=== PATIENT | male | born 1965 | race Two or more races ===

== ENCOUNTER 2019-11-21 19:31 | Emergency (ER) | payer MEDICAID ==
[~2019-11-21] VITALS: Ht 177.8 cm; Wt 118.4 kg
[2019-11-21 20:56] LABS: Basophils # (auto) 0.1 uL; Basophils % (auto) 0.9 % (0.0-2.0); Eosinophils # (auto) 0.2 uL; Eosinophils % (auto) 2.6 % (0.0-7.0); Hematocrit 40.4 % (41.0-53.0); Hemoglobin 13.4 g/dL (13.5-17.5); Lymphocytes # (auto) 1.7 uL; Lymphocytes % (auto) 28.5 % (10.0-50.0); Mean Corpuscular Hemoglobin 31.9 pg (28.0-32.0); Mean Corpuscular Hgb Conc. 33.2 g/dL (32.0-36.0); Mean Corpuscular Volume 96.1 fL (80.0-100.0); Monocytes # (auto) 0.8 uL; Monocytes % (auto) 13.2 % (0.0-12.0); Neutrophils # (auto) 3.3 uL; Neutrophils % (auto) 54.8 % (37.0-80.0); Nucleated Red Blood Cells % 0.1 %; Platelet Count (auto) 280 10^3/uL (140-450); Red Cell Distribution Width 13.2 % (11.8-14.3); White Blood Cell 6.1 10^3/uL (4.4-10.8)
[2019-11-21 21:10] LABS: INR 1.16 (0.9-1.15); Partial Thromboplastin Time 36.2 sec (23.64-32.05)
[2019-11-21 21:12] LABS: Potassium 3.8 mmol/L (3.5-5.1)
[2019-11-21 21:13] LABS: Albumin 3.8 g/dL (3.4-5.0); BUN/Creatinine Ratio 12.5; Calcium 8.7 mg/dL (8.5-10.1)
[2019-11-21 21:18] LABS: Bilirubin, Total 0.6 mg/dL (0.2-1.0)
[2019-11-22] MEDS ORDERED: MORPHINE SULFATE 4 MG/ML SYR/VIAL IV ONE (00:15)
[2019-11-22] MEDS ORDERED: ONDANSETRON HCL 4 MG/2 ML VIAL IV ONE (00:15)
[2019-11-22] MEDS ORDERED: cefTRIAXone 1GM/50ML D5W 50 ML IV ONE (00:15)
[2019-11-22 02:30] VITALS: BP 109/65
[2019-11-22] MEDS ORDERED: ENOXAPARIN SOD 120 MG/0.8 ML SYRINGE SC ONE (02:30)
== END 2019-11-22 02:49 | disposition home or self-care (01) ==
LOC: ER 19:35
DX: L25.9 Unspecified contact dermatitis, unspecified cause (principal); I82.412 Acute embolism and thrombosis of left femoral vein; M79.662 Pain in left lower leg; I11.0 Hypertensive heart disease with heart failure; I50.9 Heart failure, unspecified; Z88.0 Allergy status to penicillin
CPT/HCPCS: 36415; 80053; 83880; 84484; 85025; 85610; 85730; 93005; 93970; 96365; 96372; 96375; 99285; J0696; J1650; J2270; J2405

== ENCOUNTER 2020-05-23 12:59 | Inpatient (IN) | payer MEDICAID ==
[~2020-05-23] VITALS: Ht 180.3 cm; Wt 121.4 kg
[2020-05-23 14:14] LABS: Hematocrit 39.4 % (41.0-53.0); Hemoglobin 12.6 g/dL (13.5-17.5); Mean Corpuscular Hemoglobin 31.3 pg (28.0-32.0); Mean Corpuscular Hgb Conc. 31.9 g/dL (32.0-36.0); Mean Corpuscular Volume 98.2 fL (80.0-100.0); Platelet Count (auto) 305 10^3/uL (140-450); Red Blood Cells 4.01 10^6/uL (4.5-5.90); Red Cell Distribution Width 17.7 % (11.8-14.3); White Blood Cell 5.7 10^3/uL (4.4-10.8)
[2020-05-23 14:22] LABS: INR 1.03 (0.9-1.15)
[2020-05-23 14:29] LABS: Band Neutrophils % (manual) 0; Basophils % (manual) 0 (0.0-2.0); Blast Cells 0; Metamyelocytes % 0; Myelocytes % 0; Promyelocytes % 0; Reactive Lymphocytes 0
[2020-05-23 14:39] LABS: Lactic Acid w/Reflex 2.2 mmol/L (0.4-2.0)
[2020-05-23 14:42] LABS: Calcium 8.6 mg/dL (8.5-10.1); Potassium 3.3 mmol/L (3.5-5.1)
[2020-05-23 14:43] LABS: BUN/Creatinine Ratio 21.1
[2020-05-23 14:50] LABS: Bilirubin, Total 0.5 mg/dL (0.2-1.0); Total Protein 8.2 g/dL (6.4-8.2)
[2020-05-23 15:35] LABS: Eosinophils % (manual) 2 (0-7); Lymphocytes % (manual) 22 (10.0-50.0); Monocytes % (manual) 21 (0-12)
[2020-05-23] MEDS ORDERED: cefTRIAXone 1GM/50ML D5W 50 ML IV ONE (16:00)
[2020-05-23] MEDS ORDERED: cefTRIAXone SOD 1,000 MG VL ONE (16:03)
[2020-05-23] MEDS ORDERED: MORPHINE SULF INJ 2 MG/ML SYRINGE 1ML IV ONE (16:15)
[2020-05-23] MEDS ORDERED: ONDANSETRON HCL 4 MG/2 ML VIAL IV ONE (16:15)
[2020-05-23] MEDS ORDERED: ONDANSETRON HCL 4 MG/2 ML VIAL IV PRN (18:30)
[2020-05-23] MEDS ORDERED: ACETAMINOPHEN 500 MG TAB PO PRN (18:30)
[2020-05-23] MEDS: FUROSEMIDE 40 MG/4 ML VIAL IV SCH (19:00)
[2020-05-23] MEDS: HYDROcodone-ACET 10/325MG TAB PO PRN ×2 (19:04→23:07)
[2020-05-23 20:15] VITALS: BP 127/77
[2020-05-23] MEDS: POTASSIUM CHL 20 Meq TABLET PO SCH (21:37)
[2020-05-23] MEDS: CLINDAMYCIN 600MG IV 50 ML IV SCH (21:37)
[2020-05-23 22:00] VITALS: BP 127/77
[2020-05-23] MEDS ORDERED: DOXYCYCLINE 100MG/250ML 250 ML IV SCH (22:00)
[2020-05-24] MEDS: HYDROcodone-ACET 10/325MG TAB PO PRN ×4 (04:38→22:05)
[2020-05-24 05:00] VITALS: BP 109/67
[2020-05-24 06:04] LABS: Potassium 3.3 mmol/L (3.5-5.1)
[2020-05-24 06:12] LABS: BUN/Creatinine Ratio 19.8
[2020-05-24] MEDS: CLINDAMYCIN 600MG IV 50 ML IV SCH ×3 (07:05→22:05)
[2020-05-24] MEDS: FUROSEMIDE 40 MG/4 ML VIAL IV SCH ×2 (07:06→18:56)
[2020-05-24 08:00] VITALS: BP 114/74
[2020-05-24] MEDS: POTASSIUM CHL 20 Meq TABLET PO SCH (09:07)
[2020-05-24] MEDS: ENOXAPARIN SOD 40 MG/0.4 ML SYRINGE SC SCH (09:08)
[2020-05-24] MEDS: levoFLOXacin 500MG 100 ML IV SCH (09:08)
[2020-05-24] MEDS ORDERED: POTASSIUM CHLORIDE 20 MEQ, LIDOCAINE 1% (LOCAL ANESTH.) 2 ML in SODIUM CHL 0.9% 100 ML IV ONE (09:45)
[2020-05-24 12:00] VITALS: BP 108/72
[2020-05-24 16:58] VITALS: BP 117/76
[2020-05-24] MEDS: metOLazone 5 MG TAB PO SCH (18:56)
[2020-05-24 22:00] VITALS: BP 118/71
[2020-05-24] MEDS: POTASSIUM CHL 10 Meq TABLET PO SCH (22:04)
[2020-05-25] MEDS: HYDROcodone-ACET 10/325MG TAB PO PRN ×4 (04:31→21:00)
[2020-05-25 05:00] VITALS: BP 121/70
[2020-05-25] MEDS: CLINDAMYCIN 600MG IV 50 ML IV SCH ×3 (06:00→20:59)
[2020-05-25] MEDS: metOLazone 5 MG TAB PO SCH ×2 (06:01→16:58)
[2020-05-25] MEDS: FUROSEMIDE 40 MG/4 ML VIAL IV SCH ×2 (06:01→16:58)
[2020-05-25 06:18] LABS: BUN/Creatinine Ratio 19.3; Calcium 8.4 mg/dL (8.5-10.1)
[2020-05-25 08:24] VITALS: BP 112/74
[2020-05-25] MEDS ORDERED: POTASSIUM CHL 20 Meq TABLET PO ONE (09:15)
[2020-05-25] MEDS: levoFLOXacin 500MG 100 ML IV SCH (09:22)
[2020-05-25] MEDS: POTASSIUM CHL 10 Meq TABLET PO SCH ×2 (09:23→21:00)
[2020-05-25] MEDS: ENOXAPARIN SOD 40 MG/0.4 ML SYRINGE SC SCH (09:23)
[2020-05-25] MEDS ORDERED: POTASSIUM CHLORIDE 40 MEQ, LIDOCAINE 1% (LOCAL ANESTH.) 4 ML in SODIUM CHL 0.9% 100 ML IV ONE (09:30)
[2020-05-25] MEDS: VALSARTAN 80 MG TAB PO SCH (18:41)
[2020-05-25] MEDS: ASPirin-EC 81 mg tab PO SCH (18:41)
[2020-05-25] MEDS: MUPIROCIN 2% OINT 15gm or 22gm EACHNOSTRI SCH (20:59)
[2020-05-25 22:00] VITALS: BP 98/65
[2020-05-25] MEDS: CARVEDILOL 3.125 MG TAB PO SCH (22:00)
[2020-05-25] MEDS ORDERED: ATORVASTATIN 20 MG TAB PO SCH (22:00)
[2020-05-26] MEDS: HYDROcodone-ACET 10/325MG TAB PO PRN ×3 (03:54→17:23)
[2020-05-26 05:00] VITALS: BP 99/51
[2020-05-26] MEDS: FUROSEMIDE 40 MG/4 ML VIAL IV SCH ×2 (05:18→18:00)
[2020-05-26] MEDS: metOLazone 5 MG TAB PO SCH ×2 (05:18→18:00)
[2020-05-26] MEDS: CLINDAMYCIN 600MG IV 50 ML IV SCH ×2 (05:19→16:52)
[2020-05-26 06:15] LABS: Calcium 7.8 mg/dL (8.5-10.1); Magnesium 1.4 mg/dL (1.6-2.6); Potassium 3.4 mmol/L (3.5-5.1)
[2020-05-26 09:00] VITALS: BP 116/67
[2020-05-26] MEDS: levoFLOXacin 500MG 100 ML IV SCH (09:59)
[2020-05-26] MEDS: POTASSIUM CHL 10 Meq TABLET PO SCH (10:00)
[2020-05-26] MEDS: ASPirin-EC 81 mg tab PO SCH (10:00)
[2020-05-26] MEDS: CARVEDILOL 3.125 MG TAB PO SCH (10:00)
[2020-05-26] MEDS: ENOXAPARIN SOD 40 MG/0.4 ML SYRINGE SC SCH (10:01)
[2020-05-26] MEDS: VALSARTAN 80 MG TAB PO SCH (10:01)
[2020-05-26] MEDS: MUPIROCIN 2% OINT 15gm or 22gm EACHNOSTRI SCH (10:04)
[2020-05-26] MEDS ORDERED: MUPI2OIN2 EACHNOSTRI ×2 (12:37)
[2020-05-26] MEDS ORDERED: POTA10TA75 PO ×2 (12:37)
[2020-05-26] MEDS ORDERED: LEVO-28 PO ×2 (12:37)
[2020-05-26] MEDS ORDERED: ATOR20TA50 PO ×2 (12:37)
[2020-05-26] MEDS ORDERED: CAR3125T PO ×2 (12:37)
[2020-05-26] MEDS ORDERED: FURO1TAB31 PO ×2 (12:37)
[2020-05-26] MEDS ORDERED: ASPI-543 PO ×2 (12:37)
[2020-05-26] MEDS ORDERED: POTASSIUM EFFERVESENT TAB 25 MEQ PO ONE (12:45)
[2020-05-26 13:00] VITALS: BP 108/61
[2020-05-26] MEDS ORDERED: MAGNESIUM SULFATE 1GM/100ML 100 ML IV SCH (13:00)
[2020-05-26 17:00] VITALS: BP 126/70
[2020-05-26 18:38] VITALS: BP 126/70
== END 2020-05-26 22:10 | disposition home health service (06) | DRG 813 ==
LOC: EDBD 12:59 → ER 12:59 → OVERFLOW 13:00 → EAST 20:15 → WEST WING 05-25 08:21
PROVIDERS: ADMIT Hospitalist; ATTEND Hospitalist
DX: T81.30XA Disruption of wound, unspecified, initial encounter (principal); I50.33 Acute on chronic diastolic (congestive) heart failure; I11.0 Hypertensive heart disease with heart failure; L03.115 Cellulitis of right lower limb; E66.01 Morbid (severe) obesity due to excess calories; L03.116 Cellulitis of left lower limb; S81.801A Unspecified open wound, right lower leg, initial encounter; Z20.828 Contact with and (suspected) exposure to other viral communicable diseases; E78.5 Hyperlipidemia, unspecified; Z86.718 Personal history of other venous thrombosis and embolism; Z79.01 Long term (current) use of anticoagulants; Z68.36 Body mass index [BMI] 36.0-36.9, adult; Z88.0 Allergy status to penicillin; Z79.899 Other long term (current) drug therapy
CPT/HCPCS: 36415; 71045; 80048; 80053; 80061; 83036; 83605; 83735; 83880; 85007; 85027; 85610; 85730; 87040; 87081; 87426; 93005; 93306; 93926; 93970; 94760; G0378; J0696; J1956; J2001; J2405; J3490

== ENCOUNTER 2020-06-08 19:24 | Inpatient (IN) | payer MEDICAID ==
[~2020-06-08] VITALS: Ht 177.8 cm; Wt 123.9 kg
[~2020-06-08 19:24] MED LIST: ASPI-543 PO; ATOR20TA50 PO; CAR3125T PO; FURO1TAB31 PO; LEVO-28 PO; MUPI2OIN2 EACHNOSTRI; POTA10TA75 PO
[2020-06-08] MEDS ORDERED: CLINDAMYCIN 900MG IV 50 ML IV ONE (20:15)
[2020-06-08] MEDS ORDERED: MORPHINE SULFATE 4 MG/ML SYR/VIAL IV ONE (20:15)
[2020-06-08] MEDS ORDERED: cefTRIAXone 1GM/50ML D5W 50 ML IV ONE (20:15)
[2020-06-08] MEDS ORDERED: ONDANSETRON HCL 4 MG/2 ML VIAL IV ONE (20:15)
[2020-06-08 21:08] LABS: Basophils # (auto) 0.1 10 ^3/uL (0-0.2); Eosinophils # (auto) 0.1 10 ^3/uL (0-0.8); Nucleated Red Blood Cells % 0.1 %
[2020-06-08 21:09] LABS: Basophils % (auto) 1.1 % (0.0-2.0); Eosinophils % (auto) 1.8 % (0.0-7.0); Hematocrit 34.9 % (41.0-53.0); Hemoglobin 11.7 g/dL (13.5-17.5); Lymphocytes # (auto) 1.3 10 ^3/uL (0.4-5.4); Lymphocytes % (auto) 18.4 % (10.0-50.0); Mean Corpuscular Hemoglobin 32.9 pg (28.0-32.0); Mean Corpuscular Hgb Conc. 33.6 g/dL (32.0-36.0); Mean Corpuscular Volume 98.2 fL (80.0-100.0); Monocytes # (auto) 0.7 10 ^3/uL (0-1.3); Monocytes % (auto) 10.9 % (0.0-12.0); Neutrophils # (auto) 4.6 10 ^3/uL (1.6-8.6); Neutrophils % (auto) 67.8 % (37.0-80.0); Platelet Count (auto) 478 10^3/uL (140-450); Red Blood Cells 3.55 10^6/uL (4.5-5.90); Red Cell Distribution Width 17.3 % (11.8-14.3); White Blood Cell 6.8 10^3/uL (4.4-10.8)
[2020-06-08 21:28] LABS: BUN/Creatinine Ratio 10.5; Calcium 8.6 mg/dL (8.5-10.1); Potassium 3.4 mmol/L (3.5-5.1)
[2020-06-08 21:31] LABS: Bilirubin, Total 0.5 mg/dL (0.2-1.0); Total Protein 7.8 g/dL (6.4-8.2)
[2020-06-09] VITALS (7 sets, daily range): BP systolic 95–126; BP diastolic 52–71
[2020-06-09] MEDS ORDERED: ONDANSETRON HCL 4 MG/2 ML VIAL IV ONE ×2 (01:15→02:30)
[2020-06-09] MEDS ORDERED: MORPHINE SULFATE 4 MG/ML SYR/VIAL IV ONE (01:15)
[2020-06-09 02:24] LABS: Urine Bacteria FEW /hpf (None Seen); Urine Blood TRACE /uL (Negative); Urine Hyaline Cast FEW /lpf (0 - 2); Urine Mucus FEW (None Seen); Urine Specific Gravity 1.025 (1.001-1.035); Urine WBC 2 /hpf (0 - 3)
[2020-06-09] MEDS ORDERED: SODIUM CHLORIDE 0.9% 1,000 ML IV ONE (02:30)
[2020-06-09] MEDS ORDERED: TEMAZEPAM 15 MG CAP PO PRN (02:45)
[2020-06-09] MEDS ORDERED: ACETAMINOPHEN 325 MG TAB PO PRN (02:45)
[2020-06-09] MEDS ORDERED: ONDANSETRON HCL 4 MG/2 ML VIAL IV PRN (02:45)
[2020-06-09] MEDS: HYDROcodone-ACET 5/325MG TAB PO PRN ×3 (04:19→21:46)
[2020-06-09] MEDS ORDERED: WARF5TAB71 PO ×2 (05:38)
[2020-06-09] MEDS ORDERED: HYDR-531 PO ×2 (05:38)
[2020-06-09] MEDS: CLINDAMYCIN 600MG IV 50 ML IV SCH ×3 (05:49→21:46)
[2020-06-09] MEDS: FUROSEMIDE 40 MG TAB PO SCH ×2 (05:50→18:20)
[2020-06-09] MEDS: levoFLOXacin 500MG 100 ML IV SCH (10:27)
[2020-06-09] MEDS: ASPirin 81 mg TAB PO SCH (10:27)
[2020-06-09] MEDS: FAMOTIDINE 20 MG TAB PO SCH ×2 (10:27→21:46)
[2020-06-09] MEDS: ENOXAPARIN SOD 40 MG/0.4 ML SYRINGE SC SCH (10:28)
[2020-06-09] MEDS: CARVEDILOL 3.125 MG TAB PO SCH ×2 (10:28→22:00)
[2020-06-09] MEDS: ATORVASTATIN 20 MG TAB PO SCH (21:46)
[2020-06-10] MEDS: HYDROcodone-ACET 5/325MG TAB PO PRN ×4 (02:14→21:36)
[2020-06-10 05:00] VITALS: BP 90/60
[2020-06-10] MEDS: CLINDAMYCIN 600MG IV 50 ML IV SCH ×2 (05:55→15:30)
[2020-06-10] MEDS: FUROSEMIDE 40 MG TAB PO SCH (05:56)
[2020-06-10 06:11] LABS: Basophils # (auto) 0 10 ^3/uL (0-0.2); Basophils % (auto) 0.3 % (0.0-2.0); Eosinophils # (auto) 0.2 10 ^3/uL (0-0.8); Eosinophils % (auto) 3.6 % (0.0-7.0); Hematocrit 34.1 % (41.0-53.0); Hemoglobin 10.9 g/dL (13.5-17.5); Lymphocytes # (auto) 1.3 10 ^3/uL (0.4-5.4); Lymphocytes % (auto) 20.1 % (10.0-50.0); Mean Corpuscular Hemoglobin 31.6 pg (28.0-32.0); Mean Corpuscular Hgb Conc. 31.9 g/dL (32.0-36.0); Monocytes # (auto) 0.7 10 ^3/uL (0-1.3); Monocytes % (auto) 10.5 % (0.0-12.0); Neutrophils # (auto) 4.1 10 ^3/uL (1.6-8.6); Neutrophils % (auto) 65.5 % (37.0-80.0); Platelet Count (auto) 415 10^3/uL (140-450); Red Blood Cells 3.44 10^6/uL (4.5-5.90); Red Cell Distribution Width 17.3 % (11.8-14.3); White Blood Cell 6.3 10^3/uL (4.4-10.8)
[2020-06-10 08:02] LABS: Potassium 3.2 mmol/L (3.5-5.1)
[2020-06-10 08:04] LABS: BUN/Creatinine Ratio 13.1
[2020-06-10 09:00] VITALS: BP 114/65
[2020-06-10] MEDS ORDERED: POTASSIUM CHL 20 Meq TABLET PO ONE (09:30)
[2020-06-10] MEDS: ENOXAPARIN SOD 40 MG/0.4 ML SYRINGE SC SCH (10:31)
[2020-06-10] MEDS: levoFLOXacin 500MG 100 ML IV SCH (10:33)
[2020-06-10] MEDS: ASPirin 81 mg TAB PO SCH (10:34)
[2020-06-10] MEDS: CARVEDILOL 3.125 MG TAB PO SCH ×2 (10:35→23:08)
[2020-06-10] MEDS: FAMOTIDINE 20 MG TAB PO SCH ×2 (10:36→21:36)
[2020-06-10 12:47] VITALS: BP 123/76
[2020-06-10] MEDS: MORPHINE SULF INJ 2 MG/ML SYRINGE 1ML IV PRN (14:41)
[2020-06-10 15:45] LABS: INR 1.14 (0.9-1.15)
[2020-06-10 16:21] VITALS: BP 122/63
[2020-06-10] MEDS ORDERED: ERTAPENEM SOD INJ 1 GM in SODIUM CHL 0.9% 50 ML IV ONE (16:30)
[2020-06-10] MEDS: CLINDAMYCIN HCL 150 MG CAP PO SCH (21:35)
[2020-06-10] MEDS: MUPIROCIN 2% OINT 15gm or 22gm EACHNOSTRI SCH (21:35)
[2020-06-10] MEDS: ATORVASTATIN 20 MG TAB PO SCH (21:35)
[2020-06-10 22:00] VITALS: BP 135/77
[2020-06-11 05:00] VITALS: BP 122/76
[2020-06-11] MEDS: MORPHINE SULF INJ 2 MG/ML SYRINGE 1ML IV PRN ×3 (05:09→21:44)
[2020-06-11] MEDS: CLINDAMYCIN HCL 150 MG CAP PO SCH ×2 (06:00→13:38)
[2020-06-11 06:40] LABS: Basophils # (auto) 0 10 ^3/uL (0-0.2); Basophils % (auto) 0.3 % (0.0-2.0); Eosinophils # (auto) 0.2 10 ^3/uL (0-0.8); Eosinophils % (auto) 4.2 % (0.0-7.0); Hematocrit 31.4 % (41.0-53.0); Hemoglobin 10.6 g/dL (13.5-17.5); Lymphocytes # (auto) 1.3 10 ^3/uL (0.4-5.4); Lymphocytes % (auto) 26.5 % (10.0-50.0); Mean Corpuscular Hemoglobin 33.3 pg (28.0-32.0); Mean Corpuscular Hgb Conc. 33.9 g/dL (32.0-36.0); Mean Corpuscular Volume 98.2 fL (80.0-100.0); Monocytes # (auto) 0.7 10 ^3/uL (0-1.3); Monocytes % (auto) 13.1 % (0.0-12.0); Neutrophils # (auto) 2.8 10 ^3/uL (1.6-8.6); Neutrophils % (auto) 55.9 % (37.0-80.0); Nucleated Red Blood Cells % 0.1 %; Platelet Count (auto) 400 10^3/uL (140-450); Red Cell Distribution Width 17.4 % (11.8-14.3)
[2020-06-11 06:46] LABS: Calcium 7.9 mg/dL (8.5-10.1); Potassium 3.9 mmol/L (3.5-5.1)
[2020-06-11 06:48] LABS: INR 1.05 (0.9-1.15); Partial Thromboplastin Time 31.6 sec (23.0-31.2)
[2020-06-11 06:50] LABS: BUN/Creatinine Ratio 19.7
[2020-06-11 09:00] VITALS: BP 134/83
[2020-06-11] MEDS ORDERED: LIDOCAINE 2%HCL (LOCAL ANESTH.) INJ 20ML MDV ONE ×3 (09:34→10:47)
[2020-06-11] MEDS ORDERED: IOHEXOL 350 MG/ML 100ML IJ ONE (09:35)
[2020-06-11] MEDS ORDERED: SODIUM CHL 0.9% 0 ML ONE (09:47)
[2020-06-11] MEDS ORDERED: fentaNYL CITRATE 100 MCG/2 ML VL ONE (09:47)
[2020-06-11] MEDS ORDERED: MIDAZOLAM HCL 1MG/1ML-2 ML VIAL ONE (09:47)
[2020-06-11] MEDS ORDERED: ANGIOMAX 250 MG VIAL IV ONE (09:47)
[2020-06-11] MEDS: SILVER SULFADIAZINE 1 % TOPICAL CREAM 50GM TOP SCH (10:00)
[2020-06-11] MEDS: ENOXAPARIN SOD 40 MG/0.4 ML SYRINGE SC SCH (10:00)
[2020-06-11] MEDS ORDERED: diphenhdrAMINE HCL 50 MG/1 ML VL ONE (10:02)
[2020-06-11] MEDS ORDERED: HYDROmorphone HCL 2 MG/ML VL ONE (10:42)
[2020-06-11 12:59] VITALS: BP 132/68
[2020-06-11] MEDS: FAMOTIDINE 20 MG TAB PO SCH ×2 (13:37→21:44)
[2020-06-11] MEDS: ASPirin 81 mg TAB PO SCH (13:37)
[2020-06-11] MEDS: ERTAPENEM SOD INJ 1 GM in SODIUM CHL 0.9% 50 ML IV SCH (13:37)
[2020-06-11] MEDS: MUPIROCIN 2% OINT 15gm or 22gm EACHNOSTRI SCH ×2 (13:38→21:43)
[2020-06-11] MEDS: CARVEDILOL 3.125 MG TAB PO SCH ×2 (13:38→21:44)
[2020-06-11] MEDS ORDERED: LIDOCAINE 1% (LOCAL ANESTH.) PF 5ml SDV ID ONE (17:00)
[2020-06-11] MEDS: HYDROcodone-ACET 5/325MG TAB PO PRN (18:06)
[2020-06-11 20:00] VITALS: BP 118/73
[2020-06-11] MEDS: SODIUM CHLOR 0.9% PF (SALINE LOCK) 10ML VIAL/SYR IV SCH (21:43)
[2020-06-11] MEDS: LINEZOLID 600MG TABLET PO SCH (21:44)
[2020-06-11] MEDS: ATORVASTATIN 20 MG TAB PO SCH (21:44)
[2020-06-11 21:49] VITALS: BP 118/73
[2020-06-12] VITALS (7 sets, daily range): BP systolic 118–140; BP diastolic 69–77
[2020-06-12] MEDS: HYDROcodone-ACET 5/325MG TAB PO PRN ×3 (04:07→20:57)
[2020-06-12] MEDS: MORPHINE SULF INJ 2 MG/ML SYRINGE 1ML IV PRN ×2 (06:13→17:37)
[2020-06-12 06:49] LABS: Basophils # (auto) 0 10 ^3/uL (0-0.2); Eosinophils # (auto) 0.2 10 ^3/uL (0-0.8); Hemoglobin 10.7 g/dL (13.5-17.5); Neutrophils # (auto) 3.4 10 ^3/uL (1.6-8.6); Neutrophils % (auto) 58.2 % (37.0-80.0); White Blood Cell 5.8 10^3/uL (4.4-10.8)
[2020-06-12 06:51] LABS: Basophils % (auto) 0.7 % (0.0-2.0); Eosinophils % (auto) 3.3 % (0.0-7.0); Hematocrit 32.9 % (41.0-53.0); Lymphocytes # (auto) 1.5 10 ^3/uL (0.4-5.4); Lymphocytes % (auto) 26.6 % (10.0-50.0); Mean Corpuscular Hemoglobin 32.6 pg (28.0-32.0); Mean Corpuscular Hgb Conc. 32.5 g/dL (32.0-36.0); Mean Corpuscular Volume 100.3 fL (80.0-100.0); Monocytes # (auto) 0.6 10 ^3/uL (0-1.3); Monocytes % (auto) 11.2 % (0.0-12.0); Nucleated Red Blood Cells % 0.1 %; Platelet Count (auto) 384 10^3/uL (140-450); Red Blood Cells 3.29 10^6/uL (4.5-5.90); Red Cell Distribution Width 17.8 % (11.8-14.3)
[2020-06-12 07:14] LABS: BUN/Creatinine Ratio 20.5; Calcium 8.3 mg/dL (8.5-10.1)
[2020-06-12] MEDS: ERTAPENEM SOD INJ 1 GM in SODIUM CHL 0.9% 50 ML IV SCH (11:21)
[2020-06-12] MEDS: ASPirin 81 mg TAB PO SCH (11:22)
[2020-06-12] MEDS: LINEZOLID 600MG TABLET PO SCH ×2 (11:23→22:03)
[2020-06-12] MEDS: FAMOTIDINE 20 MG TAB PO SCH ×2 (11:23→22:03)
[2020-06-12] MEDS: CARVEDILOL 3.125 MG TAB PO SCH ×2 (11:23→22:03)
[2020-06-12] MEDS: MUPIROCIN 2% OINT 15gm or 22gm EACHNOSTRI SCH ×2 (11:24→22:02)
[2020-06-12] MEDS: ENOXAPARIN SOD 40 MG/0.4 ML SYRINGE SC SCH (11:28)
[2020-06-12] MEDS: SODIUM CHLOR 0.9% PF (SALINE LOCK) 10ML VIAL/SYR IV SCH ×2 (11:31→22:02)
[2020-06-12] MEDS: SILVER SULFADIAZINE 1 % TOPICAL CREAM 50GM TOP SCH (17:37)
[2020-06-12] MEDS: ATORVASTATIN 20 MG TAB PO SCH (22:03)
[2020-06-13] MEDS: MORPHINE SULF INJ 2 MG/ML SYRINGE 1ML IV PRN ×3 (01:55→19:54)
[2020-06-13] MEDS: HYDROcodone-ACET 5/325MG TAB PO PRN ×3 (04:41→22:16)
[2020-06-13 05:22] VITALS: BP 118/78
[2020-06-13 06:54] LABS: Basophils # (auto) 0 10 ^3/uL (0-0.2); Basophils % (auto) 0.4 % (0.0-2.0); Eosinophils # (auto) 0.2 10 ^3/uL (0-0.8); Eosinophils % (auto) 4.6 % (0.0-7.0); Hemoglobin 10.6 g/dL (13.5-17.5); Lymphocytes # (auto) 1.6 10 ^3/uL (0.4-5.4); Lymphocytes % (auto) 31.2 % (10.0-50.0); Mean Corpuscular Hemoglobin 33.4 pg (28.0-32.0); Mean Corpuscular Hgb Conc. 34.2 g/dL (32.0-36.0); Mean Corpuscular Volume 97.7 fL (80.0-100.0); Monocytes # (auto) 0.6 10 ^3/uL (0-1.3); Monocytes % (auto) 12.6 % (0.0-12.0); Neutrophils # (auto) 2.6 10 ^3/uL (1.6-8.6); Neutrophils % (auto) 51.2 % (37.0-80.0); Nucleated Red Blood Cells % 0.1 %; Platelet Count (auto) 339 10^3/uL (140-450); Red Blood Cells 3.17 10^6/uL (4.5-5.90); Red Cell Distribution Width 16.9 % (11.8-14.3)
[2020-06-13 07:20] LABS: Albumin 2.5 g/dL (3.4-5.0); Calcium 8.2 mg/dL (8.5-10.1)
[2020-06-13 07:23] LABS: BUN/Creatinine Ratio 17.9; Bilirubin, Total 0.5 mg/dL (0.2-1.0); Total Protein 6.4 g/dL (6.4-8.2)
[2020-06-13 09:00] VITALS: BP 123/66
[2020-06-13] MEDS: ERTAPENEM SOD INJ 1 GM in SODIUM CHL 0.9% 50 ML IV SCH (09:49)
[2020-06-13] MEDS: ASPirin 81 mg TAB PO SCH (09:50)
[2020-06-13] MEDS: SODIUM CHLOR 0.9% PF (SALINE LOCK) 10ML VIAL/SYR IV SCH ×2 (09:50→22:14)
[2020-06-13] MEDS: MUPIROCIN 2% OINT 15gm or 22gm EACHNOSTRI SCH ×2 (09:50→22:14)
[2020-06-13] MEDS: CARVEDILOL 3.125 MG TAB PO SCH ×2 (09:51→22:15)
[2020-06-13] MEDS: ENOXAPARIN SOD 40 MG/0.4 ML SYRINGE SC SCH (09:51)
[2020-06-13] MEDS: LINEZOLID 600MG TABLET PO SCH ×2 (09:51→22:16)
[2020-06-13] MEDS: FAMOTIDINE 20 MG TAB PO SCH ×2 (09:51→22:16)
[2020-06-13 13:00] VITALS: BP 133/81
[2020-06-13] MEDS: SILVER SULFADIAZINE 1 % TOPICAL CREAM 50GM TOP SCH (15:19)
[2020-06-13 16:53] VITALS: BP 115/71
[2020-06-13] MEDS: Ensure HIGH Protein Chocolate 8oz Bottle PO SCH (18:17)
[2020-06-13 20:00] VITALS: BP 105/68
[2020-06-13 22:00] VITALS: BP 105/68
[2020-06-13] MEDS: ATORVASTATIN 20 MG TAB PO SCH (22:15)
[2020-06-14] MEDS: HYDROcodone-ACET 5/325MG TAB PO PRN ×4 (03:12→21:08)
[2020-06-14 05:00] VITALS: BP 112/69
[2020-06-14] MEDS: MORPHINE SULF INJ 2 MG/ML SYRINGE 1ML IV PRN ×2 (06:04→16:45)
[2020-06-14 08:49] VITALS: BP 112/70
[2020-06-14 09:10] LABS: Basophils # (auto) 0 10 ^3/uL (0-0.2); Basophils % (auto) 1.1 % (0.0-2.0); Eosinophils # (auto) 0.2 10 ^3/uL (0-0.8); Eosinophils % (auto) 4.7 % (0.0-7.0); Hematocrit 32.3 % (41.0-53.0); Hemoglobin 10.7 g/dL (13.5-17.5); Lymphocytes # (auto) 1.4 10 ^3/uL (0.4-5.4); Lymphocytes % (auto) 30.6 % (10.0-50.0); Mean Corpuscular Hgb Conc. 33.3 g/dL (32.0-36.0); Monocytes # (auto) 0.5 10 ^3/uL (0-1.3); Monocytes % (auto) 10.7 % (0.0-12.0); Neutrophils # (auto) 2.5 10 ^3/uL (1.6-8.6); Neutrophils % (auto) 52.9 % (37.0-80.0); Nucleated Red Blood Cells % 0.1 %; Platelet Count (auto) 313 10^3/uL (140-450); Red Blood Cells 3.26 10^6/uL (4.5-5.90); Red Cell Distribution Width 16.3 % (11.8-14.3); White Blood Cell 4.7 10^3/uL (4.4-10.8)
[2020-06-14 09:27] LABS: Albumin 2.5 g/dL (3.4-5.0); Potassium 3.9 mmol/L (3.5-5.1)
[2020-06-14 09:29] LABS: % Iron Saturation 21.8 % (20-55)
[2020-06-14 09:31] LABS: BUN/Creatinine Ratio 15.7; Bilirubin, Total 0.4 mg/dL (0.2-1.0); Total Protein 6.8 g/dL (6.4-8.2)
[2020-06-14] MEDS: MUPIROCIN 2% OINT 15gm or 22gm EACHNOSTRI SCH ×2 (10:21→22:19)
[2020-06-14] MEDS: Ensure HIGH Protein Chocolate 8oz Bottle PO SCH ×3 (10:21→18:39)
[2020-06-14] MEDS: ERTAPENEM SOD INJ 1 GM in SODIUM CHL 0.9% 50 ML IV SCH (10:21)
[2020-06-14] MEDS: SODIUM CHLOR 0.9% PF (SALINE LOCK) 10ML VIAL/SYR IV SCH ×2 (10:22→22:19)
[2020-06-14] MEDS: CARVEDILOL 3.125 MG TAB PO SCH ×2 (10:22→22:23)
[2020-06-14] MEDS: ASPirin 81 mg TAB PO SCH (10:22)
[2020-06-14] MEDS: LINEZOLID 600MG TABLET PO SCH ×2 (10:22→22:24)
[2020-06-14] MEDS: FAMOTIDINE 20 MG TAB PO SCH ×2 (10:22→22:24)
[2020-06-14] MEDS: SILVER SULFADIAZINE 1 % TOPICAL CREAM 50GM TOP SCH (10:23)
[2020-06-14] MEDS: ENOXAPARIN SOD 40 MG/0.4 ML SYRINGE SC SCH (10:23)
[2020-06-14] MEDS ORDERED: APIXABAN 5 MG TAB PO ONE (11:45)
[2020-06-14 12:50] VITALS: BP 103/66
[2020-06-14 16:48] VITALS: BP 126/70
[2020-06-14 16:55] LABS: Ferritin 298.3 ng/mL (10-322); Free T4 (Free Thyroxine) 1.06 ng/dL (0.89-1.76)
[2020-06-14 16:56] LABS: Folate (Folic Acid) 9.69 ng/mL (5.38-24)
[2020-06-14] MEDS: APIXABAN 5 MG TAB PO SCH (22:24)
[2020-06-14] MEDS: ATORVASTATIN 20 MG TAB PO SCH (22:24)
[2020-06-14 23:35] VITALS: BP 126/72
[2020-06-15] MEDS: MORPHINE SULF INJ 2 MG/ML SYRINGE 1ML IV PRN ×2 (00:31→08:36)
[2020-06-15] MEDS: HYDROcodone-ACET 5/325MG TAB PO PRN (04:42)
[2020-06-15 05:37] VITALS: BP 120/61
[2020-06-15] MEDS: Ensure HIGH Protein Chocolate 8oz Bottle PO SCH (08:35)
[2020-06-15 08:44] VITALS: BP 121/69
[2020-06-15] MEDS: LINEZOLID 600MG TABLET PO SCH (09:12)
[2020-06-15] MEDS: MUPIROCIN 2% OINT 15gm or 22gm EACHNOSTRI SCH (09:13)
[2020-06-15] MEDS: FAMOTIDINE 20 MG TAB PO SCH (09:13)
[2020-06-15] MEDS: SODIUM CHLOR 0.9% PF (SALINE LOCK) 10ML VIAL/SYR IV SCH (09:13)
[2020-06-15] MEDS: ASPirin 81 mg TAB PO SCH (09:13)
[2020-06-15] MEDS: CARVEDILOL 3.125 MG TAB PO SCH (09:13)
[2020-06-15] MEDS: APIXABAN 5 MG TAB PO SCH (09:13)
[2020-06-15] MEDS: ENOXAPARIN SOD 40 MG/0.4 ML SYRINGE SC SCH (09:14)
[2020-06-15] MEDS: SILVER SULFADIAZINE 1 % TOPICAL CREAM 50GM TOP SCH (09:14)
[2020-06-15] MEDS: ERTAPENEM SOD INJ 1 GM in SODIUM CHL 0.9% 50 ML IV SCH (09:19)
== END 2020-06-15 10:42 | DRG 383 ==
LOC: EDBD 19:24 → ER 19:24 → OVERFLOW 19:25 → WEST WING 06-09 04:30
PROVIDERS: ADMIT Nurse Practitioner; ATTEND Internal Medicine Nephrology
PROC: B41G1ZZ Fluoroscopy of Left Lower Extremity Arteries using Low Osmolar Contrast (ICD-10-PCS; principal; 2020-06-11)
PROC: B41F1ZZ Fluoroscopy of Right Lower Extremity Arteries using Low Osmolar Contrast (ICD-10-PCS; 2020-06-11)
DX: L03.116 Cellulitis of left lower limb (principal); I73.9 Peripheral vascular disease, unspecified; I11.0 Hypertensive heart disease with heart failure; G62.9 Polyneuropathy, unspecified; L89.893 Pressure ulcer of other site, stage 3; I50.22 Chronic systolic (congestive) heart failure; Z20.828 Contact with and (suspected) exposure to other viral communicable diseases; L03.115 Cellulitis of right lower limb; E87.6 Hypokalemia; E66.9 Obesity, unspecified; E78.5 Hyperlipidemia, unspecified; D64.9 Anemia, unspecified; E87.1 Hypo-osmolality and hyponatremia; I82.5Z3 Chronic embolism and thrombosis of unspecified deep veins of distal lower extremity, bilateral; B96.1 Klebsiella pneumoniae [K. pneumoniae] as the cause of diseases classified elsewhere; Z16.24 Resistance to multiple antibiotics; R59.0 Localized enlarged lymph nodes; Z83.3 Family history of diabetes mellitus; Z91.19 Patient's noncompliance with other medical treatment and regimen; Z72.89 Other problems related to lifestyle; Z88.0 Allergy status to penicillin; Z82.49 Family history of ischemic heart disease and other diseases of the circulatory system; Z68.39 Body mass index [BMI] 39.0-39.9, adult; Z79.01 Long term (current) use of anticoagulants
CPT/HCPCS: 36415; 36569; 71045; 73700; 75716; 80048; 80053; 81001; 82040; 82607; 82668; 82728; 82746; 82962; 83010; 83036; 83540; 83550; 83605; 83615; 83880; 84439; 84443; 84484; 85025; 85045; 85610; 85652; 85730; 86225; 86235; 86850; 86900; 86901; 87040; 87077; 87081; 87186; 87205; 87426; 93005; 93925; 93970; A4565; G0378; J0696; J1335; J1956; J2250; J2405; J3490

== ENCOUNTER 2020-10-19 17:54 | Emergency (ER) | payer MEDICAID ==
[~2020-10-19] VITALS: Ht 177.8 cm; Wt 95.3 kg
[2020-10-19] MEDS ORDERED: VANCOMYCIN 1GM/250ML 250 ML IV ONE ×2 (19:45)
[2020-10-19] MEDS ORDERED: CEFEPIME 2 GM in SODIUM CHL 0.9% 50 ML IV ONE (19:45)
[2020-10-19 20:05] LABS: Basophils # (auto) 0.1 10 ^3/uL (0-0.2); Basophils % (auto) 1.1 % (0.0-2.0); Eosinophils # (auto) 0.3 10 ^3/uL (0-0.8); Eosinophils % (auto) 5.6 % (0.0-7.0); Hematocrit 38.3 % (41.0-53.0); Hemoglobin 13.1 g/dL (13.5-17.5); Lymphocytes # (auto) 1.7 10 ^3/uL (0.4-5.4); Lymphocytes % (auto) 29.7 % (10.0-50.0); Mean Corpuscular Hemoglobin 32.4 pg (28.0-32.0); Mean Corpuscular Hgb Conc. 34.1 g/dL (32.0-36.0); Monocytes # (auto) 0.5 10 ^3/uL (0-1.3); Monocytes % (auto) 9.2 % (0.0-12.0); Neutrophils % (auto) 54.4 % (37.0-80.0); Nucleated Red Blood Cells % 0.1 %; Platelet Count (auto) 360 10^3/uL (140-450); Red Blood Cells 4.03 10^6/uL (4.5-5.90); Red Cell Distribution Width 13.1 % (11.8-14.3); White Blood Cell 5.5 10^3/uL (4.4-10.8)
[2020-10-19 20:25] LABS: Calcium 8.2 mg/dL (8.5-10.1); Potassium 3.6 mmol/L (3.5-5.1)
[2020-10-19 20:36] LABS: BUN/Creatinine Ratio 14.5; CRP High Sensitivity 4.34 mg/dL (< 0.3)
[2020-10-19 20:40] LABS: Lactic Acid w/Reflex 2.1 mmol/L (0.4-2.0)
[2020-10-19] MEDS ORDERED: HYDROGEL 60 GRAM GEL TOP SCH (22:00)
[2020-10-20] MEDS ORDERED: levoFLOXacin 750MG 150 ML IV ONE
[2020-10-20] MEDS ORDERED: HYDROcodone-ACET 5/325MG TAB PO ONE
[2020-10-20 03:20] VITALS: BP 105/62
== END 2020-10-20 02:47 | disposition admitted as inpatient to this hospital (09) ==
LOC: ER 17:54
DX: T81.89XA Other complications of procedures, not elsewhere classified, initial encounter (principal); L03.116 Cellulitis of left lower limb; L03.115 Cellulitis of right lower limb; I11.0 Hypertensive heart disease with heart failure; I50.9 Heart failure, unspecified; E78.00 Pure hypercholesterolemia, unspecified; Z86.2 Personal history of diseases of the blood and blood-forming organs and certain disorders involving the immune mechanism; Z88.0 Allergy status to penicillin
CPT/HCPCS: 36415; 73700; 80048; 83605; 85025; 85652; 86141; 87040; 96365; 96366; 96367; 99285; J0692; J1956; J3370